=== PATIENT | male | born 1975 | race Caucasian/White ===

== ENCOUNTER 2020-03-30 09:31 | Emergency (ER) | payer SELFPAY ==
[~2020-03-30] VITALS: Ht 193 cm; Wt 136.1 kg
[2020-03-30 09:40] VITALS: BP_SYST 149
--- NOTE | 2020-03-30 09:45 | NUR ---
AMBULATED TO BED 7
--- NOTE | 2020-03-30 09:53 | NUR ---
DR. PERRY AT BEDSIDE
--- NOTE | 2020-03-30 10:05 | NUR ---
Patient came from home for evaluation due to losing his medication. He is requesting a refill.
[2020-03-30 10:22] VITALS: BP_SYST 149
--- NOTE | 2020-03-30 10:22 | NUR ---
Patient given written and verbal discharge instructions and verbalizes understanding. ER MD discussed with patient the results and treatment provided. Patient in stable condition. ID arm band removed. Rx of alprazolam,buprenorphine/nalaxone,zolpidem,sertraline given. Patient educated on pain management and to follow up with PMD. Pain Scale 0/10. Opportunity for questions provided and answered. Medication side effect fact sheet provided.
== END 2020-03-30 10:22 | disposition home or self-care (01) ==
LOC: SED 09:31
DX: F41.9 Anxiety disorder, unspecified (principal)
CPT/HCPCS: 99281